=== PATIENT | male | born 1955 | race Caucasian/White ===

== ENCOUNTER 2021-04-24 10:29 | Outpatient (CLI) | payer MEDICARE ==
[2021-04-23 09:11] LABS: APTT 26 SECONDS (22-32)
[2021-04-23 09:15] LABS: ALBUMIN 3.6 G/DL (3.4-5.0); ANION GAP 7 (8-16); BLOOD UREA NITROGEN 17 MG/DL (7-18); BUN/CREATININE RATIO 17.5 (5.4-32.0); CALCIUM 9.2 MG/DL (8.5-10.1); CHLORIDE 107 MMOL/L (99-107); CHOLESTEROL 241 MG/DL (0-200); CREATININE 0.97 MG/DL (0.60-1.10); GLUCOSE 107 MG/DL (70-104); HDL CHOLESTEROL 40 MG/DL (35-60); LDL CHOLESTEROL 156 MG/DL (50-100); POTASSIUM 4.5 MMOL/L (3.5-5.1); SODIUM 142 MMOL/L (135-145); TOTAL CARBON DIOXIDE 27.8 MMOL/L (24-32); TRIGLYCERIDES 187 MG/DL (20-135); eGFR 78 ML/MIN
[2021-04-24] MEDS ORDERED: iohexol 350 MG/ML 50ML vial IV ONE (11:01)
[2021-04-24] MEDS ORDERED: iohexol 350MG/ML 100ml bottle IV ONE (11:01)
== END 2021-04-24 23:59 | disposition home or self-care (01) ==
LOC: RAD 10:29
PROVIDERS: ATTEND Family Medicine
DX: J43.9 Emphysema, unspecified (principal); N28.1 Cyst of kidney, acquired; K57.90 Diverticulosis of intestine, part unspecified, without perforation or abscess without bleeding; N20.0 Calculus of kidney; M47.817 Spondylosis without myelopathy or radiculopathy, lumbosacral region; M48.07 Spinal stenosis, lumbosacral region; I71.9 Aortic aneurysm of unspecified site, without rupture; I70.0 Atherosclerosis of aorta; J84.10 Pulmonary fibrosis, unspecified; I71.4 Abdominal aortic aneurysm, without rupture; I10 Essential (primary) hypertension
CPT/HCPCS: 36415; 71275; 74174; 80048; 80061; 85610; 85730; 86803; Q9967

== ENCOUNTER 2022-04-28 06:03 | Day surgery (SDC) | payer MEDICARE ==
[~2022-04-28] VITALS: Ht 193 cm; Wt 134.9 kg
[2022-04-28] VITALS (10 sets, daily range): BP systolic 92–135; BP diastolic 52–95
[2022-04-28] MEDS ORDERED: AMLO5TAB16 PO (06:27)
[2022-04-28] MEDS ORDERED: ATOR20TA66 PO (06:27)
[2022-04-28] MEDS ORDERED: normal saline 1000ml 1,000 ML IV PRN (06:30)
[2022-04-28] MEDS ORDERED: OSC500T PO (06:31)
[2022-04-28] MEDS ORDERED: TRAM50TA2 PO (06:31)
[2022-04-28] MEDS ORDERED: CLOP75TA34 PO (06:32)
[2022-04-28] MEDS ORDERED: Melatonin PO (06:33)
[2022-04-28] MEDS ORDERED: LOSA50TA64 PO (06:34)
[2022-04-28] MEDS ORDERED: METO100T14 PO (06:35)
[2022-04-28] MEDS ORDERED: CYAN-34 PO (06:37)
[2022-04-28] MEDS ORDERED: vitamin d3 PO (06:38)
[2022-04-28] MEDS ORDERED: NITR0.4T48 PO (06:39)
[2022-04-28 06:49] LABS: BASOPHILS # (AUTO) 0.1 X10'3 (0-0.2); BASOPHILS % (AUTO) 0.7 % (0-1); EOSINOPHILS # (AUTO) 0.6 X10'3 (0-0.9); EOSINOPHILS % (AUTO) 6.1 % (0-6); HEMOGLOBIN 15.2 g/dl (14.0-17.9); LYMPHOCYTES # (AUTO) 2.8 X10'3 (1.1-4.8); LYMPHOCYTES % (AUTO) 28.4 % (21-51); MEAN CORPUSCULAR HEMOGLOBIN 28.6 PG (27.0-31.0); MEAN CORPUSCULAR HGB CONC 33.7 g/dL (33.0-36.5); MEAN CORPUSCULAR VOLUME 84.9 FL (78-98); MONOCYTES % (AUTO) 10.1 % (2-12); NEUTROPHILS # (AUTO) 5.3 X10'3 (1.8-7.7); NEUTROPHILS % (AUTO) 54.7 % (42-75); PLATELET COUNT 246 X10'3 (140-440); WHITE BLOOD COUNT 9.8 X10'3 (4.5-11.0)
[2022-04-28 07:19] LABS: ALBUMIN 3.5 G/DL (3.4-5.0); ANION GAP 8 (8-16); BLOOD UREA NITROGEN 19 MG/DL (7-18); BUN/CREATININE RATIO 17.3 (5.4-32.0); CALCIUM 8.4 MG/DL (8.5-10.1); CHLORIDE 105 MMOL/L (99-107); GLUCOSE 101 MG/DL (70-104); POTASSIUM 4.2 MMOL/L (3.5-5.1); SODIUM 139 MMOL/L (135-145); TOTAL CARBON DIOXIDE 26.5 MMOL/L (24-32); eGFR 67 ML/MIN
[2022-04-28] MEDS ORDERED: FENTANYL CITRATE/PF 50 MCG/1 ML VIAL ONE ×6 (07:56→12:52)
[2022-04-28] MEDS ORDERED: midazolam 1 mg/ML 2ml injection ONE ×5 (07:56→13:30)
[2022-04-28] MEDS ORDERED: LIDOcaine 1% 30ml preserv. free vial ONE (07:56)
[2022-04-28] MEDS ORDERED: iohexol 300mg/ml 100ml inj. ONE (07:57)
[2022-04-28] MEDS ORDERED: heparin 1,000 UNITS/NS 500ml 500 ML ONE ×3 (07:57→12:08)
[2022-04-28] MEDS ORDERED: diphenhydrAMINE 50 mg/ml inj ONE (09:08)
[2022-04-28] MEDS ORDERED: heparin 1,000unit/ml 10ml vial 10 ML ONE ×4 (09:08→12:09)
[2022-04-28] MEDS ORDERED: proCHLORperazine 10 MG/2 ml inj ONE (09:41)
[2022-04-28] MEDS ORDERED: nitroGLYCERIN-Tridil 50MG/D5W 250 ML IV ONE (09:58)
[2022-04-28] MEDS ORDERED: verapamil 2.5 mg/ml inj IV ONE (10:00)
[2022-04-28] MEDS ORDERED: ceFAZolin/D5W- 1GM premix 50 ML IV ONE (10:50)
[2022-04-28] MEDS ORDERED: HYDROmorphone 1 mg/ml syringe ONE (12:06)
[2022-04-28] MEDS ORDERED: normal saline 1000ml 1,000 ML IV SCH (13:45)
== END 2022-04-28 17:42 | disposition home or self-care (01) ==
LOC: SSTAY O 06:03
PROVIDERS: ATTEND Radiology Vascular & Interventional Radiology
DX: I74.5 Embolism and thrombosis of iliac artery (principal); Z98.890 Other specified postprocedural states; Z72.89 Other problems related to lifestyle; Z79.899 Other long term (current) drug therapy; Z91.048 Other nonmedicinal substance allergy status; Z79.01 Long term (current) use of anticoagulants; Z95.828 Presence of other vascular implants and grafts; Z88.8 Allergy status to other drugs, medicaments and biological substances; Z87.891 Personal history of nicotine dependence
CPT/HCPCS: 36415; 37184; 37220; 75625; 75710; 80048; 85025; 85347; 99152; 99153; C1725; C1760; C1769; C1887; C1894; J0780; J1170; J1200; J1644; J2250; J3010; J3490; J7030; Q9967; 36140; 36160; A4620; A6258; A6402; C1729

== ENCOUNTER 2022-07-10 06:25 | Day surgery (SDC) | payer MEDICARE ==
[2022-07-10] VITALS (9 sets, daily range): BP systolic 87–119; BP diastolic 52–70
[~2022-07-10] VITALS: Ht 190.5 cm; Wt 130.4 kg
[~2022-07-10 06:25] MED LIST: AMLO5TAB16 PO; ATOR20TA66 PO; CLOP75TA34 PO; CYAN-34 PO; LOSA50TA64 PO; METO100T14 PO; Melatonin PO; NITR0.4T48 PO; OSC500T PO; TRAM50TA2 PO; vitamin d3 PO
[2022-07-10] MEDS ORDERED: APIX5TAB3 PO (06:58)
[2022-07-10 08:15] LABS: BASOPHILS # (AUTO) 0.1 X10'3 (0-0.2); BASOPHILS % (AUTO) 0.6 % (0-1); EOSINOPHILS # (AUTO) 0.3 X10'3 (0-0.9); EOSINOPHILS % (AUTO) 3.7 % (0-6); HEMOGLOBIN 15.3 g/dl (14.0-17.9); LYMPHOCYTES # (AUTO) 2.3 X10'3 (1.1-4.8); LYMPHOCYTES % (AUTO) 26.8 % (21-51); MEAN CORPUSCULAR HEMOGLOBIN 29.3 PG (27.0-31.0); MEAN CORPUSCULAR VOLUME 86.2 FL (78-98); MEAN PLATELET VOLUME 8.6 FL (7.4-10.4); MONOCYTES # (AUTO) 0.7 X10'3 (0-0.9); MONOCYTES % (AUTO) 8.7 % (2-12); NEUTROPHILS # (AUTO) 5.1 X10'3 (1.8-7.7); NEUTROPHILS % (AUTO) 60.2 % (42-75); PLATELET COUNT 233 X10'3 (140-440); RED BLOOD COUNT 5.22 X10'6 (4.70-6.10); RED CELL DISTRIBUTION WIDTH 14.3 % (11.5-14.5); WHITE BLOOD COUNT 8.5 X10'3 (4.5-11.0)
[2022-07-10 08:20] LABS: ALBUMIN 3.7 G/DL (3.4-5.0); ANION GAP 8 (8-16); BLOOD UREA NITROGEN 26 MG/DL (7-18); BUN/CREATININE RATIO 25.2 (5.4-32.0); CALCIUM 8.9 MG/DL (8.5-10.1); CHLORIDE 108 MMOL/L (99-107); CREATININE 1.03 MG/DL (0.60-1.10); GLUCOSE 108 MG/DL (70-104); POTASSIUM 4.1 MMOL/L (3.5-5.1); SODIUM 143 MMOL/L (135-145); TOTAL CARBON DIOXIDE 27.3 MMOL/L (24-32); eGFR 72 ML/MIN
[2022-07-10] MEDS ORDERED: dexmedetomidin/NS 400mcg/100ml 100 ML IV SCH (08:20)
[2022-07-10] MEDS ORDERED: heparin 1,000 UNITS/NS 500ml 500 ML ONE ×2 (08:22→11:31)
[2022-07-10] MEDS ORDERED: iohexol 300mg/ml 100ml inj. ONE (08:22)
[2022-07-10] MEDS ORDERED: dexmedetomidine inj. 400 MCG in normal saline 100ml IV soln 96 ML IV SCH (08:28)
[2022-07-10] MEDS ORDERED: fentaNYL/PF 50MCG/1 ML 2ML syringe ONE (08:58)
[2022-07-10] MEDS ORDERED: heparin 1,000unit/ml 10ml vial 10 ML ONE ×2 (09:32→11:36)
[2022-07-10] MEDS ORDERED: normal saline 1000ml 1,000 ML IV SCH (12:50)
== END 2022-07-10 16:00 | disposition home or self-care (01) ==
LOC: SSTAY O 06:25
PROVIDERS: ATTEND Radiology Vascular & Interventional Radiology
DX: T82.868A Thrombosis due to vascular prosthetic devices, implants and grafts, initial encounter (principal); I10 Essential (primary) hypertension; Z98.890 Other specified postprocedural states; Z91.048 Other nonmedicinal substance allergy status; Z79.01 Long term (current) use of anticoagulants; Z79.899 Other long term (current) drug therapy; Z72.89 Other problems related to lifestyle; Z87.891 Personal history of nicotine dependence; Y83.8 Other surgical procedures as the cause of abnormal reaction of the patient, or of later complication, without mention of misadventure at the time of the procedure; Y92.89 Other specified places as the place of occurrence of the external cause
CPT/HCPCS: 36415; 37221; 75625; 75710; 80048; 85025; 85347; 85610; 99152; 99153; C1725; C1760; C1769; C1874; C1894; J1644; J3010; J7030; Q9967; 37223; 37236; 75716; A4620; A6213; A6258; A6449